=== PATIENT | male | born 1965 | race Caucasian/White ===

== ENCOUNTER 2018-03-07 07:55 | Inpatient (IN) | payer BC ==
[~2018-03-07] VITALS: Ht 172.7 cm; Wt 96.2 kg
[2018-03-07] MEDS ORDERED: LIDOCAINE 2% (LOCAL ANESTH.) PF 5ml SDV ONE (10:14)
[2018-03-07] MEDS ORDERED: IODIXANOL 320MG/ML 100ML BTL IV ONE (10:14)
[2018-03-07] MEDS ORDERED: SODIUM CHL 0.9% 50 ML ONE (10:18)
[2018-03-07] MEDS ORDERED: VERAPAMIL 2.5MG/ML INJ 2ML VIAL IV ONE (10:18)
[2018-03-07] MEDS ORDERED: fentaNYL CITRATE 100 MCG/2 ML VL ONE (10:18)
[2018-03-07] MEDS ORDERED: ANGIOMAX 250 MG VIAL IV ONE (10:18)
[2018-03-07] MEDS ORDERED: MIDAZOLAM HCL 1MG/1ML-2 ML VIAL ONE (10:18)
[2018-03-07] MEDS ORDERED: HYDROcodone-ACET 5/325MG TAB PO PRN (11:15)
[2018-03-07] MEDS ORDERED: MORPHINE SULF(PF) 0.5MG/ML 10ML VIAL IV PRN (11:15)
[2018-03-07] MEDS ORDERED: NITROGLYCERIN 0.4 MG SL TAB SL PRN (11:15)
[2018-03-07] MEDS ORDERED: ONDANSETRON HCL 4 MG/2 ML VIAL IV PRN (11:15)
[2018-03-07] MEDS ORDERED: ACETAMINOPHEN 500 MG TAB PO PRN (11:15)
[2018-03-07] MEDS ORDERED: RANI-185 PO (11:25)
[2018-03-07] MEDS ORDERED: LISI10TA6 PO (11:25)
[2018-03-07] MEDS ORDERED: CLOP75TA41 PO (11:25)
[2018-03-07] MEDS ORDERED: METO-158 PO (11:25)
[2018-03-07] MEDS ORDERED: ASPI81TA27 PO (11:25)
[2018-03-07] MEDS ORDERED: PANT40T PO (11:25)
[2018-03-07] MEDS: SODIUM CHLOR 0.9% PF (SALINE LOCK) 10ML VIAL/SYR IV SCH ×2 (14:00→21:54)
[2018-03-07 20:00] VITALS: BP 120/77
[2018-03-07 21:52] VITALS: BP 120/77
[2018-03-07] MEDS: METOPROLOL TARTRATE 50 MG TAB PO SCH (21:53)
[2018-03-07] MEDS: FAMOTIDINE 20 MG TAB PO SCH (21:53)
[2018-03-08 04:16] VITALS: BP 118/66
[2018-03-08] MEDS: SODIUM CHLOR 0.9% PF (SALINE LOCK) 10ML VIAL/SYR IV SCH (05:51)
[2018-03-08 09:00] VITALS: BP 114/72
[2018-03-08] MEDS ORDERED: PANTOPRAZOLE 40 MG TAB PO SCH (10:00)
[2018-03-08] MEDS ORDERED: LISINOPRIL 10 MG TAB PO SCH (10:00)
[2018-03-08] MEDS ORDERED: CLOPIDOGREL BISULFATE 75 MG TAB PO SCH (10:00)
[2018-03-08] MEDS ORDERED: ASPirin-EC 81 mg tab PO SCH (10:00)
[2018-03-08] MEDS: FAMOTIDINE 20 MG TAB PO SCH (10:27)
[2018-03-08] MEDS: METOPROLOL TARTRATE 50 MG TAB PO SCH (10:28)
[2018-03-08 10:45] VITALS: BP 114/72
== END 2018-03-08 12:15 | disposition home or self-care (01) | DRG 247 ==
LOC: CATH 07:55 → EAST 07:56 → TELE-EAST 16:55
PROVIDERS: ADMIT Internal Medicine; ATTEND Internal Medicine
PROC: 027034Z Dilation of Coronary Artery, One Artery with Drug-eluting Intraluminal Device, Percutaneous Approach (ICD-10-PCS; principal; 2018-03-07)
PROC: 4A023N7 Measurement of Cardiac Sampling and Pressure, Left Heart, Percutaneous Approach (ICD-10-PCS; 2018-03-07)
PROC: B2111ZZ Fluoroscopy of Multiple Coronary Arteries using Low Osmolar Contrast (ICD-10-PCS; 2018-03-07)
DX: I25.10 Atherosclerotic heart disease of native coronary artery without angina pectoris (principal); I25.2 Old myocardial infarction
CPT/HCPCS: 92928; 93458; 99152; C1874; C1887; J2250; Q9967